=== PATIENT | male | born 1985 | race Caucasian/White ===

== ENCOUNTER 2017-02-27 01:09 | Emergency (ER) | payer MEDICAID, OTHER ==
[2017-02-27] MEDS ORDERED: LIDOCAINE HCL/EPINEPHRINE 20 ML VIAL ONE (01:37)
--- NOTE | 2017-02-27 02:38 | ERNOTE ---
Medical Problem HPI - General Chief Complaint: Laceration Time Seen by Provider: 02/27/17 01:27 Source: patient Exam Limitations: no limitations - Immun/Allergies/Home Medications Immunizations: IMMUNIZATION HX Immunizations Up to Date Yes History of Influenza Vaccine Yes Hx Pneumococcal Vaccination No Allergies/Adverse Reactions: Allergies No Known Allergies Allergy (Unverified 02/27/17 01:13) Home Medications: HOME MEDICATIONS NK [No Home Medication] 02/27/17 [Last Taken Unknown] - History of Present History Narrative: Pt was working at [email or web address] and went to help another employee with a large piece of metal that had gotten stuck. The metal sheet slid and lacerated his right anterior shoulder. Pt put a piece of cloth around the upper arm as a tourniquet but was distal to the wound. He also had wound dressed with paper towels and taped around the upper arm / shoulder. There was still some minor bleeding despite these measures Timing: constant Severity: moderate Review of Systems - Review of Systems Constitutional: Absent: recent illness, fever EYE: Present: no symptoms reported ENT: Present: no symptoms reported Respiratory: Present: no symptoms reported Cardiology: Present: no symptoms reported Gastrointestinal/Abdominal: Present: no symptoms reported Genitourinary: Present: no symptoms reported Musculoskeletal: Present: no symptoms reported Skin: Present: See HPI, other - recent laceration of his left hand Neurological: Absent: numbness, tingling Endocrine: Present: no symptoms reported Hematologic/Lymphatic: Present: no symptoms reported Psych: Present: no symptoms reported - Patient's Past Medical History Patient History - Medical: Migraines Patient History - Cardiac/Respiratory: No pertinent hx Patient History - Cancer: No Hx of Cancer Patient History - Surgical Procedures: Orthopedic Patient History - Other: None - Family History Father Family History - Medical: Diabetes Type 2 Insulin Dependent Family History - Cardiac/Respiratory: Hypertension Family History - Cancer: No pertinent family hx Mother Family History - Medical: No pertinent hx Family History - Cardiac/Respiratory: Coronary Heart Disease, Hypertension Family History - Cancer: No pertinent family hx - Social History Living Situations: spouse Abuse History: No History of abuse Psych History: No pertinent hx Smoking Status: Current every day smoker Have you smoked in the past 12 months: Yes Do you dip or chew tobacco: No Patient requests Smoking Cessation Consult: No Initiate information on Smoking Cessation: No Alcohol Use: none Drug Use: none - Immunizations Immunizations Up to Date: Yes Hx Pneumococcal Vaccination: No History of Influenza Vaccine: Yes Physical Exam - Physical Exam General Appearance: Present: wd/wn, alert, no apparent distress Head Exam: Present: normal inspection, no evidence of injury Eye Exam: Normal inspection: bilateral Neck: Present: normal inspection, nontender, supple Respiratory: Present: no respiratory distress, no accessory muscle use Cardiovascular/Chest: Absent: chest tenderness Peripheral Pulses: N=norm/S=strong/W=weak/B=bound/A=absent: Radial (R): Normal Back Exam: Present: normal inspection, normal range of motion Extremity Exam: Present: normal inspection, normal range of motion, no edema, other - good movement and strength of right arm at shoulder and elbow. Neurological Exam: Present: alert, oriented, normal mood/affect, no motor/ sensory deficits, student development dean II-XII nml as tested Skin Exam: Present: normal color, warm/dry, other - vertical laceration of right anterior shoulder. No muscular or tendon involvement ED Progress - Vital Signs Vital Signs: Vital Signs 02/27/17 01:15 Temperature 36.9 C Pulse Rate 80 Respiratory 18 Rate Blood Pressure 131/84 O2 Sat by Pulse 97 Oximetry - Progress/Reassessment Chief Complaint: Laceration Progress:: Improved Procedures Right Anterior Shoulder Anesthesia: Lidocaine w/ Epi I & D Prep: betadine prep, sterile drapes applied, sterile dressing applied Length of Repair/Wound (cm): 4.5 Wound's Depth/Shape: into subcutaneous, linear Wound Explored: clean, to base, in bloodless field, no foreign body Distal NVT: neuro/vasc intact, no tendon injury Wound Repaired With: sutures Suture Size/Type: 5-0, nylon Number of Sutures: 9 Layer Closure: Intermediate Deep Layer Suture Size/Type: 3-0, chromic Number Deep Layer Sutures: 3 Estimated blood loss (ml): 40 Wound Dressing: sterile dressing applied Complications: Pt anna procedure well Departure Clinical Impression: Laceration of shoulder, right Qualifiers: Encounter type: initial encounter Qualified Code(s): S41.011A - Laceration without foreign body of right shoulder, initial encounter - Departure Disposition: Home Follow Up Needed Condition: Good Instructions: Laceration Care, Adult, [id number] Additional Instructions: Have sutures taken out in 7-10 days Referrals: Hay Rodriguez MD [Primary Care Provider] -
[2017-02-27 02:49] VITALS: BP 138/72
== END 2017-02-27 02:40 | disposition home or self-care (01) ==
LOC: ER 01:09
PROC: 0JQD0ZZ Repair Right Upper Arm Subcutaneous Tissue and Fascia, Open Approach (ICD-10-PCS; principal; 2017-02-27)
DX: S41.011A Laceration without foreign body of right shoulder, initial encounter; F17.200 Nicotine dependence, unspecified, uncomplicated; Y92.63 Factory as the place of occurrence of the external cause; W26.8XXA Contact with other sharp object(s), not elsewhere classified, initial encounter; Y93.89 Activity, other specified; Y99.0 Civilian activity done for income or pay
CPT/HCPCS: 12032; 99284